=== PATIENT | male | born 1935 | race Caucasian/White ===

== ENCOUNTER → 2017-06-30 | Outpatient (CLI) | payer BC ==
[~2017-06-30] MED LIST: BYSTOLIC2.5 MG; CARDURA4 MG PO; CIPRO 250MG TA250 MG PO; COUMADIN 5MG5 MG/TAB PO; FOLIC ACID0.4 MG PO; OXYCODONE; ZESTRIL 5MG5 MG PO
[2017-06-30 18:08] LABS: HEMOGLOBIN 13.1 g/dl (13.5-18.0); MEAN CELL VOLUME 99 fl (80.0-100.0); MEAN CORPUSCULAR HEMOGLOBIN 33 pg (27.0-31.0); MEAN CORPUSCULAR HGB CONC 34 g/dl (33.0-37.0); MEAN PLATELET VOLUME 9.8 fl (7.4-10.4); PLATELET COUNT 193 K/mm3 (130-400); RED BLOOD COUNT 3.94 M/mm3 (4.20-5.60); REDCELL DISTRIBUTION WIDTH-CV 14.5 % (11.5-14.5)
[2017-06-30 18:22] LABS: BILIRUBIN,TOTAL 0.5 mg/dL (0.0-1.0); CREATININE, serum 1.83 mg/dL (0.66-1.25); POTASSIUM 4.2 mmol/L (3.4-5.0); TOTAL PROTEIN 7.1 gm/dL (6.4-8.2)
[2017-06-30 18:29] LABS: ERYTHROCYTE SEDIMENTATION RATE 7 mm/hr (0-30)
[2017-06-30 18:42] LABS: TROPONIN-I 0.075 ng/mL (0.000-0.034)
== END ==
LOC: COL.LAB 17:40
PROVIDERS: Emergency Medicine
DX: R10.13 Epigastric pain (principal)

== ENCOUNTER 2017-07-01 08:04 | Inpatient (IN) | payer BC ==
[~2017-07-01] VITALS: Ht 177.8 cm; Wt 90.8 kg
[2017-07-01] VITALS (9 sets, daily range): BP systolic 146–230; BP diastolic 75–116; PULSE 54–93; TEMP 97.4–98
[~2017-07-01 08:04] MED LIST changes: -FOLIC ACID0.4 MG PO
[2017-07-01] MEDS ORDERED: FOLIC ACID0.4 MG PO (08:21)
[2017-07-01 08:49] LABS: BASO % 0.4 % (0.0-2.0); EOS # 0.1 (0.0-0.7); EOS % 0.8 % (0-4.0); GRAN # 7.8 (1.4-6.5); GRAN % 77.1 % (42.2-75.2); HEMATOCRIT 42.3 % (42.0-52.0); HEMOGLOBIN 14.4 g/dl (13.5-18.0); LYMPH # 1.4 (1.2-3.4); LYMPH % 13.3 % (20.0-51.0); MEAN CELL VOLUME 98 fl (80.0-100.0); MEAN CORPUSCULAR HEMOGLOBIN 33 pg (27.0-31.0); MEAN CORPUSCULAR HGB CONC 34 g/dl (33.0-37.0); MEAN PLATELET VOLUME 9.7 fl (7.4-10.4); MONO # 0.8 (0.1-0.6); MONO % 7.8 % (1.7-9.3); PLATELET COUNT 212 K/mm3 (130-400); RED BLOOD COUNT 4.32 M/mm3 (4.20-5.60); REDCELL DISTRIBUTION WIDTH-CV 14.3 % (11.5-14.5)
[2017-07-01 08:52] LABS: PROTHROMBIN TIME 23.4 SECONDS (9.7-12.8)
[2017-07-01 08:55] LABS: PARTIAL THROMBOPLASTIN TIME 37.5 SECONDS (26.0-37.0)
[2017-07-01 09:23] LABS: ALBUMIN 4.4 gm/dL (3.5-5.0); BILIRUBIN,TOTAL 0.8 mg/dL (0.0-1.0); CALCIUM 9.4 mg/dL (8.4-10.2); CREATININE, serum 1.8 mg/dL (0.66-1.25); POTASSIUM 3.7 mmol/L (3.4-5.0); TOTAL PROTEIN 7.6 gm/dL (6.4-8.2)
[2017-07-01 09:26] LABS: TROPONIN-I 0.092 ng/mL (0.000-0.034)
[2017-07-01] MEDS ORDERED: COUMADIN 5MG5 MG/TAB PO (13:21)
[2017-07-02 04:05] VITALS: BP 170/83; PULSE 57; TEMP 97.7
[2017-07-02 06:49] LABS: BASO % 0.5 % (0.0-2.0); EOS # 0.2 (0.0-0.7); GRAN # 5.3 (1.4-6.5); GRAN % 72.3 % (42.2-75.2); LYMPH # 1.1 (1.2-3.4); LYMPH % 15.3 % (20.0-51.0); MEAN CELL VOLUME 100 fl (80.0-100.0); MEAN CORPUSCULAR HGB CONC 33 g/dl (33.0-37.0); MEAN PLATELET VOLUME 10.3 fl (7.4-10.4); MONO # 0.7 (0.1-0.6); MONO % 9.1 % (1.7-9.3); PLATELET COUNT 174 K/mm3 (130-400); RED BLOOD COUNT 3.67 M/mm3 (4.20-5.60); REDCELL DISTRIBUTION WIDTH-CV 14.4 % (11.5-14.5)
[2017-07-02 06:59] LABS: HEMATOCRIT 36.7 % (42.0-52.0); HEMOGLOBIN 12.1 g/dl (13.5-18.0); MEAN CORPUSCULAR HEMOGLOBIN 33 pg (27.0-31.0)
[2017-07-02 07:06] LABS: CALCIUM 8.7 mg/dL (8.4-10.2); CREATININE, serum 1.7 mg/dL (0.66-1.25); POTASSIUM 3.8 mmol/L (3.4-5.0)
[2017-07-02 07:08] LABS: PROTHROMBIN TIME 23.2 SECONDS (9.7-12.8)
[2017-07-02 08:16] VITALS: BP 189/93; PULSE 53; TEMP 98.5
[2017-07-02 12:40] VITALS: BP 160/74; PULSE 51; TEMP 98
[2017-07-02 16:22] VITALS: BP 172/70; PULSE 59; TEMP 98.5
[2017-07-02 19:50] LABS: URINE PROTEIN:CREAT RATIO 0.25 (0.00-0.14)
[2017-07-02 19:53] LABS: MUCOUS Present /lpf; PH 7 (5-8); SQUAMOUS EPITHELIAL 0-2 /hpf; URINE APPEARANCE Cloudy; URINE BILIRUBIN Negative (NEGATIVE); URINE BLOOD Negative (NEGATIVE); URINE COLOR Yellow; URINE GLUCOSE Negative (NEGATIVE); URINE KETONE Negative (NEGATIVE); URINE LEUKOCYTE ESTERASE 2+ (NEGATIVE); URINE NITRATE Negative (NEGATIVE); URINE PROTEIN(semi-quant) 2+ (NEGATIVE); URINE UROBILINOGEN Negative (NEGATIVE); URINE WBC >50 /hpf
[2017-07-02 19:55] LABS: URINE BACTERIA Occasional /hpf
[2017-07-02 19:56] LABS: COLLECTION METHOD CLEAN CATCH
[2017-07-02 20:16] VITALS: BP 148/71; PULSE 58; TEMP 97.9
[2017-07-03] VITALS (7 sets, daily range): BP systolic 117–189; BP diastolic 61–83; PULSE 50–110; TEMP 97.8–98.8
[2017-07-03 07:29] LABS: INR 1.5 (0.8-3.0); PROTHROMBIN TIME 17.7 SECONDS (9.7-12.8)
[2017-07-03 11:17] LABS: CREATININE, serum 1.73 mg/dL (0.66-1.25); POTASSIUM 3.8 mmol/L (3.4-5.0)
[2017-07-04 04:29] VITALS: BP 176/74; PULSE 53; TEMP 98.8
[2017-07-04 07:18] LABS: INR 1.4 (0.8-3.0); PROTHROMBIN TIME 16.2 SECONDS (9.7-12.8)
[2017-07-04 07:36] LABS: CREATININE, serum 1.78 mg/dL (0.66-1.25)
[2017-07-04 07:44] VITALS: BP 169/72; PULSE 51; TEMP 98.8
[2017-07-04 09:31] VITALS: BP 188/92; PULSE 55
[2017-07-04 10:45] VITALS: BP 170/73; PULSE 51
[2017-07-04 11:00] VITALS: BP 162/75; PULSE 50; TEMP 97.3
== END 2017-07-04 11:20 | disposition short-term general hospital (02) | DRG 281 ==
LOC: COL.ER 08:04 → MEDICAL 10:20
PROVIDERS: Emergency Medicine; Internal Medicine
PROC: B2111ZZ Fluoroscopy of Multiple Coronary Arteries using Low Osmolar Contrast (ICD-10-PCS; principal; 2017-07-04)
PROC: B2151ZZ Fluoroscopy of Left Heart using Low Osmolar Contrast (ICD-10-PCS; 2017-07-04)
PROC: B3101ZZ Fluoroscopy of Thoracic Aorta using Low Osmolar Contrast (ICD-10-PCS; 2017-07-04)
DX: I21.4 Non-ST elevation (NSTEMI) myocardial infarction (principal); N17.9 Acute kidney failure, unspecified; I25.10 Atherosclerotic heart disease of native coronary artery without angina pectoris; I12.9 Hypertensive chronic kidney disease with stage 1 through stage 4 chronic kidney disease, or unspecified chronic kidney disease; N18.3 Chronic kidney disease, stage 3 (moderate); I35.2 Nonrheumatic aortic (valve) stenosis with insufficiency; Z86.711 Personal history of pulmonary embolism; Z79.01 Long term (current) use of anticoagulants; Z85.46 Personal history of malignant neoplasm of prostate
CPT/HCPCS: A9502; C1760; C1769; C1894; C9113; J1650; J2250; J2785; J3010; J7030; Q9967

== ENCOUNTER 2017-09-15 13:25 | Outpatient (RCR) | payer BC ==
[~2017-09-15 13:25] MED LIST changes: +FOLIC ACID0.4 MG PO
== END 2017-09-27 14:51 | disposition home or self-care (01) ==
LOC: COL.CR 13:25
DX: I25.118 Atherosclerotic heart disease of native coronary artery with other forms of angina pectoris (principal); K21.9 Gastro-esophageal reflux disease without esophagitis; Z86.711 Personal history of pulmonary embolism; Z79.01 Long term (current) use of anticoagulants; N18.3 Chronic kidney disease, stage 3 (moderate); C61 Malignant neoplasm of prostate; I89.0 Lymphedema, not elsewhere classified

== ENCOUNTER → 2017-11-10 | Outpatient (CLI) | payer MEDICARE, BC ==
[2017-11-10 14:07] LABS: BASO % 0.4 % (0.0-2.0); EOS # 0.1 (0.0-0.7); GRAN # 8.4 (1.4-6.5); GRAN % 78.3 % (42.2-75.2); HEMATOCRIT 37.3 % (42.0-52.0); HEMOGLOBIN 12.4 g/dl (13.5-18.0); LYMPH # 1.2 (1.2-3.4); LYMPH % 10.9 % (20.0-51.0); MEAN CELL VOLUME 100 fl (80.0-100.0); MEAN CORPUSCULAR HEMOGLOBIN 33 pg (27.0-31.0); MEAN CORPUSCULAR HGB CONC 33 g/dl (33.0-37.0); MEAN PLATELET VOLUME 9.4 fl (7.4-10.4); MONO # 0.9 (0.1-0.6); MONO % 8.4 % (1.7-9.3); PLATELET COUNT 233 K/mm3 (130-400); RED BLOOD COUNT 3.75 M/mm3 (4.20-5.60)
[2017-11-10 14:13] LABS: INR 1.8 (0.8-3.0); PROTHROMBIN TIME 20.2 SECONDS (9.7-12.8)
[2017-11-10 14:18] LABS: CALCIUM 9.6 mg/dL (8.4-10.2); CREATININE, serum 1.72 mg/dL (0.66-1.25); POTASSIUM 4.3 mmol/L (3.4-5.0); TOTAL PROTEIN 7.3 gm/dL (6.4-8.2)
== END ==
LOC: COL.RAD 13:15
PROVIDERS: Emergency Medicine
DX: K44.9 Diaphragmatic hernia without obstruction or gangrene (principal); I10 Essential (primary) hypertension; Z79.01 Long term (current) use of anticoagulants

== ENCOUNTER 2018-01-25 23:52 | Emergency (ER) | payer MEDICARE, BC ==
[~2018-01-25] VITALS: Ht 177.8 cm; Wt 86.4 kg
[2018-01-26 00:17] VITALS: BP 136/66; PULSE 65; TEMP 98.5
[2018-01-26] MEDS ORDERED: NORVASC 5MG5 MG/TAB PO (01:25)
[2018-01-26] MEDS ORDERED: LIPITOR 80MG80 MG PO (01:25)
[2018-01-26] MEDS ORDERED: PEPCID 20MG TAB20 MG PO (01:26)
[2018-01-26] MEDS ORDERED: COREG 6.256.25 MG/TA PO (01:26)
[2018-01-26] MEDS ORDERED: NITROSTAT0.4 MG/TAB SL (01:27)
[2018-01-26] MEDS ORDERED: IMDUR 30MG30 MG/TAB PO (01:27)
[2018-01-26] MEDS ORDERED: COUMADIN 5MG5 MG/TAB PO (01:29)
[2018-01-26] MEDS ORDERED: AMOXICILLIN 8751 TAB PO (04:18)
== END 2018-01-26 04:27 | disposition home or self-care (01) ==
LOC: COL.ER 23:52
DX: S81.811A Laceration without foreign body, right lower leg, initial encounter (principal); L03.115 Cellulitis of right lower limb; I10 Essential (primary) hypertension; I25.10 Atherosclerotic heart disease of native coronary artery without angina pectoris; E78.5 Hyperlipidemia, unspecified; Z98.890 Other specified postprocedural states; Z79.01 Long term (current) use of anticoagulants; W01.0XXA Fall on same level from slipping, tripping and stumbling without subsequent striking against object, initial encounter

== ENCOUNTER 2018-01-31 17:33 | Inpatient (IN) | payer MEDICARE, BC ==
[~2018-01-31] VITALS: Ht 177.8 cm; Wt 87.9 kg
[2018-01-31] VITALS (8 sets, daily range): BP systolic 96–135; BP diastolic 52–68; PULSE 79–88; TEMP 97.7–98.6
[~2018-01-31 17:33] MED LIST changes: +AMOXICILLIN 8751 TAB PO; +COREG 6.256.25 MG/TA PO; +IMDUR 30MG30 MG/TAB PO; +LIPITOR 80MG80 MG PO; +NITROSTAT0.4 MG/TAB SL; +NORVASC 5MG5 MG/TAB PO; +PEPCID 20MG TAB20 MG PO
[2018-02-01] VITALS (21 sets, daily range): BP systolic 101–146; BP diastolic 54–77; PULSE 70–90; TEMP 97.8–98.8
[2018-02-01 06:40] LABS: CALCIUM 8.3 mg/dL (8.4-10.2); CREATININE, serum 1.82 mg/dL (0.66-1.25); POTASSIUM 4.1 mmol/L (3.4-5.0)
[2018-02-01 07:23] LABS: HEMATOCRIT 20.5 % (42.0-52.0); HEMOGLOBIN 6.7 g/dl (13.5-18.0)
[2018-02-01 08:46] LABS: INR 6.6 (0.8-3.0); PROTHROMBIN TIME 75.1 SECONDS (9.7-12.8)
[2018-02-01 20:13] LABS: HEMOGLOBIN 8.5 g/dl (13.5-18.0)
[2018-02-01 20:14] LABS: INR 1.8 (0.8-3.0); PROTHROMBIN TIME 20.1 SECONDS (9.7-12.8)
[2018-02-02] VITALS (10 sets, daily range): BP systolic 107–183; BP diastolic 58–81; PULSE 60–84; TEMP 97.4–98.6
[2018-02-02 06:23] LABS: CALCIUM 8.1 mg/dL (8.4-10.2); CREATININE, serum 1.67 mg/dL (0.66-1.25); POTASSIUM 3.7 mmol/L (3.4-5.0)
[2018-02-02 06:40] LABS: HEMATOCRIT 24.2 % (42.0-52.0)
[2018-02-02 07:02] LABS: INR 1.5 (0.8-3.0); PROTHROMBIN TIME 16.6 SECONDS (9.7-12.8)
[2018-02-02 09:30] LABS: HEMATOCRIT 24.7 % (42.0-52.0); HEMOGLOBIN 8.4 g/dl (13.5-18.0)
[2018-02-03 01:43] VITALS: BP 140/68; PULSE 110; PULSE 66; TEMP 97.7
[2018-02-03 06:21] LABS: INR 1.3 (0.8-3.0); PROTHROMBIN TIME 14.9 SECONDS (9.7-12.8)
[2018-02-03 06:29] LABS: HEMATOCRIT 27.6 % (42.0-52.0); HEMOGLOBIN 9.3 g/dl (13.5-18.0)
[2018-02-03 06:36] LABS: CALCIUM 8.1 mg/dL (8.4-10.2); CREATININE, serum 1.52 mg/dL (0.66-1.25); POTASSIUM 3.9 mmol/L (3.4-5.0)
[2018-02-03 08:19] VITALS: BP 139/69; PULSE 57; TEMP 97.9
[2018-02-03 09:44] LABS: HEMATOCRIT 26.3 % (42.0-52.0); HEMOGLOBIN 8.8 g/dl (13.5-18.0)
[2018-02-03 13:00] VITALS: BP 142/68; PULSE 62; TEMP 98.5
[2018-02-03 16:57] VITALS: BP 155/71; PULSE 66; TEMP 97.9
[2018-02-03 18:12] LABS: HEMATOCRIT 29.5 % (42.0-52.0); HEMOGLOBIN 9.8 g/dl (13.5-18.0)
[2018-02-03 23:50] VITALS: BP 151/65; PULSE 103; TEMP 97.8
[2018-02-04 04:19] VITALS: BP 157/78; PULSE 76; TEMP 97.8
[2018-02-04 08:07] VITALS: BP 143/86; PULSE 83; TEMP 98.2
[2018-02-04 12:30] VITALS: BP 134/56; PULSE 63
[2018-02-04 13:00] VITALS: BP 131/81; PULSE 72; TEMP 98.6
[2018-02-04 14:00] VITALS: BP 145/76; PULSE 88
[2018-02-04 15:00] VITALS: BP 145/80; PULSE 76; TEMP 98.7
[2018-02-04] MEDS ORDERED: PROTONIX 40MG T40 MG PO (17:27)
[2018-02-04 17:33] LABS: HEMATOCRIT 26.1 % (42.0-52.0); HEMOGLOBIN 8.9 g/dl (13.5-18.0)
== END 2018-02-04 18:42 | disposition home health service (06) | DRG 378 ==
LOC: MEDICAL 17:33
PROVIDERS: Emergency Medicine; Internal Medicine Gastroenterology
PROC: 0DBK8ZX Excision of Ascending Colon, Via Natural or Artificial Opening Endoscopic, Diagnostic (ICD-10-PCS; 2018-02-04)
PROC: 0W3P8ZZ Control Bleeding in Gastrointestinal Tract, Via Natural or Artificial Opening Endoscopic (ICD-10-PCS; principal; 2018-02-04 11:00)
PROC: 0DB68ZX Excision of Stomach, Via Natural or Artificial Opening Endoscopic, Diagnostic (ICD-10-PCS; 2018-02-04 11:00)
DX: K26.4 Chronic or unspecified duodenal ulcer with hemorrhage (principal); L03.115 Cellulitis of right lower limb; D62 Acute posthemorrhagic anemia; Z66 Do not resuscitate; K63.5 Polyp of colon; I12.9 Hypertensive chronic kidney disease with stage 1 through stage 4 chronic kidney disease, or unspecified chronic kidney disease; N18.3 Chronic kidney disease, stage 3 (moderate); I25.10 Atherosclerotic heart disease of native coronary artery without angina pectoris; Z85.46 Personal history of malignant neoplasm of prostate; Z86.711 Personal history of pulmonary embolism; Z79.01 Long term (current) use of anticoagulants; S80.11XA Contusion of right lower leg, initial encounter
CPT/HCPCS: C9113; J0690; J2704; J3430; J7030; P9016

== ENCOUNTER → 2018-03-01 | Outpatient (CLI) | payer MEDICARE, BC ==
[~2018-03-01] MED LIST changes: +PROTONIX 40MG T40 MG PO
== END ==
LOC: ZCOL.LAB 15:26
DX: L97.919 Non-pressure chronic ulcer of unspecified part of right lower leg with unspecified severity (principal)

== ENCOUNTER 2018-08-23 15:07 | Outpatient (RCR) | payer MEDICARE, BC | END 2018-09-30 10:37 | disposition home or self-care (01) | LOC: WSPT 15:07 | DX: R60.0 Localized edema (principal) ==

== ENCOUNTER 2018-10-30 04:29 | Emergency (ER) | payer MEDICARE, BC ==
[~2018-10-30] VITALS: Ht 177.8 cm; Wt 86.4 kg
[~2018-10-30 04:29] MED LIST changes: +FOLIC ACID 11 MG/TA1 PO; -FOLIC ACID0.4 MG PO
[2018-10-30 04:36] VITALS: TEMP 97.5
[2018-10-30] MEDS ORDERED: PLAVIX 75MG TAB75 MG PO (04:42)
[2018-10-30 05:36] LABS: BASO % 0.3 % (0.0-2.0); EOS # 0.1 (0.0-0.7); EOS % 1.2 % (0-4.0); GRAN # 7.8 (1.4-6.5); GRAN % 78.6 % (42.2-75.2); HEMOGLOBIN 11.4 g/dl (13.5-18.0); LYMPH % 9.7 % (20.0-51.0); MEAN CELL VOLUME 104 fl (80.0-100.0); MEAN CORPUSCULAR HEMOGLOBIN 34 pg (27.0-31.0); MEAN CORPUSCULAR HGB CONC 33 g/dl (33.0-37.0); MEAN PLATELET VOLUME 9.7 fl (7.4-10.4); MONO # 0.9 (0.1-0.6); MONO % 8.9 % (1.7-9.3); PLATELET COUNT 194 K/mm3 (130-400); RED BLOOD COUNT 3.37 M/mm3 (4.20-5.60); REDCELL DISTRIBUTION WIDTH-CV 14.8 % (11.5-14.5)
[2018-10-30 05:37] LABS: HEMATOCRIT 34.9 % (42.0-52.0)
[2018-10-30 05:46] LABS: ALBUMIN 3.7 gm/dL (3.5-5.0); BILIRUBIN,TOTAL 0.7 mg/dL (0.0-1.0); CALCIUM 9.3 mg/dL (8.4-10.2); CREATININE, serum 1.76 (0.66-1.25); TOTAL PROTEIN 6.8 gm/dL (6.4-8.2)
[2018-10-30 06:14] VITALS: BP 148/76; PULSE 64
== END 2018-10-30 06:26 | disposition home or self-care (01) ==
LOC: COL.ER 04:29
PROVIDERS: Emergency Medicine
DX: R04.0 Epistaxis (principal); R05 Cough; I25.10 Atherosclerotic heart disease of native coronary artery without angina pectoris; Z79.02 Long term (current) use of antithrombotics/antiplatelets; Z85.46 Personal history of malignant neoplasm of prostate

== ENCOUNTER 2018-10-31 06:16 | Emergency (ER) | payer MEDICARE, BC ==
[~2018-10-31] VITALS: Ht 177.8 cm; Wt 86.4 kg
[~2018-10-31 06:16] MED LIST changes: +PLAVIX 75MG TAB75 MG PO
[2018-10-31 06:21] VITALS: TEMP 97
[2018-10-31 07:50] VITALS: BP 145/71; PULSE 61
== END 2018-10-31 07:50 | disposition home or self-care (01) ==
LOC: COL.ER 06:16
DX: R04.0 Epistaxis (principal); I10 Essential (primary) hypertension; Z79.02 Long term (current) use of antithrombotics/antiplatelets

== ENCOUNTER 2018-11-03 17:40 | Emergency (ER) | payer MEDICARE, BC ==
[~2018-11-03] VITALS: Ht 180.3 cm; Wt 95.5 kg
[2018-11-03 17:51] VITALS: TEMP 98.3
[2018-11-03] MEDS ORDERED: DIOVAN 80MG80 MG PO (18:02)
[2018-11-03] MEDS ORDERED: AMOXICILLIN 50500 MG PO (18:03)
[2018-11-03 18:06] LABS: HEMOGLOBIN 10.7 g/dl (13.5-18.0); MEAN CELL VOLUME 103 fl (80.0-100.0); MEAN CORPUSCULAR HEMOGLOBIN 33 pg (27.0-31.0); MEAN CORPUSCULAR HGB CONC 33 g/dl (33.0-37.0); MEAN PLATELET VOLUME 9.8 fl (7.4-10.4); PLATELET COUNT 210 K/mm3 (130-400); RED BLOOD COUNT 3.21 M/mm3 (4.20-5.60); REDCELL DISTRIBUTION WIDTH-CV 14.7 % (11.5-14.5)
[2018-11-03 18:07] LABS: HEMATOCRIT 32.9 % (42.0-52.0)
[2018-11-03 18:17] LABS: ALBUMIN 3.8 gm/dL (3.5-5.0); BILIRUBIN,TOTAL 0.6 mg/dL (0.0-1.0); CALCIUM 9.3 mg/dL (8.4-10.2); CREATININE, serum 1.84 (0.66-1.25); POTASSIUM 4.1 mmol/L (3.4-5.0)
[2018-11-03 19:02] LABS: BAND 3 % (0-10); EOSINOPHIL 1 % (0-4); LYMPHOCYTE 15 % (20.0-51.0); METAMYELOCYTE 1 % (0-0); NEUTROPHILS 76 % (42.0-75.2)
[2018-11-03 19:03] LABS: PLATELET ESTIMATE NORMAL (NORMAL)
[2018-11-03 19:49] VITALS: BP 132/78; PULSE 69
== END 2018-11-03 19:49 | disposition home or self-care (01) ==
LOC: COL.ER 17:40
PROVIDERS: Family Medicine
DX: R04.0 Epistaxis (principal); I10 Essential (primary) hypertension; I48.91 Unspecified atrial fibrillation; I25.10 Atherosclerotic heart disease of native coronary artery without angina pectoris; Z79.02 Long term (current) use of antithrombotics/antiplatelets; Z79.82 Long term (current) use of aspirin

== ENCOUNTER → 2019-06-12 | Outpatient (CLI) | payer MEDICARE, BC ==
[~2019-06-12] MED LIST changes: +AMOXICILLIN 50500 MG PO; +DIOVAN 80MG80 MG PO
== END ==
LOC: COL.VAS 11:00
DX: R60.0 Localized edema (principal)